=== PATIENT | female | born 1985 | race Caucasian/White ===

== ENCOUNTER → 2019-06-19 11:15 | Day surgery (SDC) | payer BC ==
[~2019-06-19 11:15] MED LIST: Acetaminophen TAB* 325 MG PO PRN; Albuterol/Ipratropium NEB.SOL* Albuterol 2.5 MG/Ipratropium 0.5 MG 3 ML ONE; Buffered Lidocaine 1% SYRIN* 1 ML/SYRINGE INTRADERM ONE; Lactated Ringers 1000 ML Bag* 1,000 ML IV SCH; Lidocaine 2% PF * 5 ML VIAL ONE; Midazolam* 1 MG/ML 2 ML VIAL (2 MG) ONE; Naloxone* 0.4 MG/ML 1 ML VIAL IV PRN; Ondansetron INJ* 2 MG/ML VIAL IV PRN; Propofol* 10 MG/ML 20 ML BTL ONE; Propofol* 500 MG/50 ML BTL ONE
[2019-06-19 17:25] VITALS: BP 124/89
--- NOTE | 2019-06-19 21:14 | PRO ---
CC: Dr. Lore Steen * DATE OF PROCEDURE: 06/19/19 - [facility] PROCEDURE: EGD with biopsy. REFERRING PROVIDER: Dr. Lore Steen. INDICATIONS: The patient reports multiple GI symptoms including nausea with vomiting, heartburn, intermittent chest discomfort, abdominal discomfort, and diarrhea. She reports to being very sensitive to gluten and having rashes at points that were felt to be gluten-related. She has done a repeat gluten challenge. She stopped gluten several days ago. Overall, she felt that the symptoms were much worse on the gluten. She had labs drawn last week which demonstrated a normal tTG and a normal IgA level. MEDICATIONS GIVEN: By Anesthesia. DESCRIPTION OF PROCEDURE: Full disclosure of risks was reviewed with the patient as detailed on the consent form. The patient was placed in the left lateral decubitus position and monitored with continuous pulse oximetry, capnography, interval blood pressure monitoring, and direct observation. A bite block was placed between the patient's teeth. An adult gastroscope was then inserted into the patient's mouth and advanced down the esophagus, into the stomach, and into the distal duodenum. Findings and interventions are described below. FINDINGS: The esophagus was a normal tubular structure without rings or stricture. There was some trachealization and linear furrowing in the mid distal esophagus. GE junction was mildly irregular with evidence of very mild esophagitis. This occurred at 35 cm. It was difficult to tell if there were erosions several centimeters above the GE junction or if the findings were linear furrowing. Biopsies were obtained from the GE junction as well as the mid and distal esophagus to evaluate for eosinophilic esophagitis. Scope was then advanced into the stomach. Stomach was examined in the forward and retroflexed views. Gastric mucosa was normal in appearance. No erosions or ulcers. No mass. Biopsy obtained from the antrum and sent for CLOtest. Scope was then advanced into the duodenum to at least the third portion. The duodenal mucosa was unremarkable in appearance. No significant scalloping or evidence of celiac disease. Biopsies obtained from the duodenum for disaccharidase enzyme analysis as well as histologic evaluation. Scope was then withdrawn from the patient. The patient tolerated the procedure well and was recovered in the GI recovery area. IMPRESSION: 1. Complete upper endoscopy to the distal duodenum. 2. Trachealization and furrowing in the esophagus suspicious for eosinophilic esophagitis. 3. Mildly irregular Z-line with very minimal esophagitis. 4. Otherwise, unremarkable exam. FOLLOWUP: 1. Await pathology. 2. Would start on omeprazole 40 mg daily. 3. If evidence of eosinophilic esophagitis on biopsies, then I would plan for repeat EGD with anesthesia in 8 weeks to see if there is improvement on PPI. 4. I would recommend restarting gluten-free diet as the patient is at least gluten intolerant. We will await biopsies to determine if celiac is present. Thank you very much for this referral. [id number]/[facility] #: [id number] GLEN
--- NOTE | 2019-06-19 21:30 | PRO ---
CC: Dr. Lore Steen * DATE OF PROCEDURE: 06/19/19 - [facility] PROCEDURE: Colonoscopy with biopsy. REFERRING PROVIDER: Dr. Lore Steen. INDICATION: The patient was seen in clinic recently. She has multiple GI symptoms including fluctuations between diarrhea and constipation. She tends to have more diarrhea issues. She has had some rectal bleeding. Symptoms do seem to get worse on a gluten-containing diet. MEDICATIONS GIVEN: By Anesthesia. DESCRIPTION OF PROCEDURE: Full disclosure of risks was reviewed with the patient as detailed on the consent form. The patient was placed in the left lateral decubitus position and monitored with continuous pulse oximetry, capnography, interval blood pressure monitoring, and direct observation. After anorectal examination was performed, the adult colonoscope was inserted into the rectum and slowly advanced forward to the level of the terminal ileum. Complete views of the cecum were obtained including the medial wall between the IC valve and the appendiceal orifice. Quality of the prep was fair. Careful inspection was made as the colonoscope was withdrawn. Retroflexion was performed in the rectum. Findings and interventions are described below. FINDINGS: Anorectal exam was unremarkable. Scope was inserted into the rectum and slowly advanced forward to the cecum. Once in the cecum, the terminal ileum was intubated x5 cm. Ileal mucosa was normal in appearance. Scope was then withdrawn back into the cecum and then slowly throughout the length of the colon. There was no colitis. No polyps. No significant diverticulosis. Random biopsies obtained throughout the colon and rectum to evaluate for microscopic colitis. Retroflexion in the rectum demonstrated hypertrophied anal papillae and internal hemorrhoids. Scope was then withdrawn from the patient. The patient tolerated the procedure well and was recovered in the GI recovery area. IMPRESSION: 1. Complete colonoscopy to the terminal ileum. 2. Normal exam with the exception of internal hemorrhoids and hypertrophied anal papillae. FOLLOWUP: 1. Await pathology. 2. Bleeding intermittently is likely related to hemorrhoids in the setting of irregular bowel movements. Recommend conservative management for hemorrhoids. Hopefully controlling the diarrhea will lead to an improvement in the hemorrhoid irritation as well. Thank you very much for this referral. [id number]/[facility] #: [id number] GLEN
== END | disposition home or self-care (01) ==
LOC: OR 11:15
PROVIDERS: ATTEND Internal Medicine Gastroenterology
DX: R11.2 Nausea with vomiting, unspecified (principal); K21.9 Gastro-esophageal reflux disease without esophagitis; R10.84 Generalized abdominal pain; R19.7 Diarrhea, unspecified; K62.5 Hemorrhage of anus and rectum; J45.909 Unspecified asthma, uncomplicated; I10 Essential (primary) hypertension; F41.8 Other specified anxiety disorders; F41.9 Anxiety disorder, unspecified; R07.89 Other chest pain
CPT/HCPCS: 81025; 82657; 87077; 88305; A9270-GY; J2250; J2704